=== PATIENT | male | born 1950 | race African-American/Black ===

== ENCOUNTER 2017-05-11 09:07 | Emergency (ER) | payer OTHER ==
[~2017-05-11] VITALS: Ht 170.2 cm; Wt 84.0 kg
[2017-05-11] MEDS ORDERED: ALLO300 PO (09:10)
[2017-05-11] MEDS ORDERED: AMLO-511 PO (09:10)
[2017-05-11] MEDS ORDERED: ATOR20TA86 PO (09:10)
[2017-05-11] MEDS ORDERED: VALS160T2 PO (09:10)
[2017-05-11] MEDS ORDERED: CARV12 PO (09:10)
[2017-05-11] MEDS ORDERED: RIVA15T PO (09:11)
[2017-05-11 09:15] VITALS: BP 166/114
== END 2017-05-11 09:33 | disposition home or self-care (01) ==
LOC: EMS 09:08
DX: I10 Essential (primary) hypertension (principal); R20.0 Anesthesia of skin; E78.00 Pure hypercholesterolemia, unspecified
CPT/HCPCS: 99281

== ENCOUNTER 2017-05-13 01:02 | Emergency (ER) | payer OTHER ==
[~2017-05-13] VITALS: Ht 170.2 cm; Wt 89.5 kg
[~2017-05-13 01:02] MED LIST: ALLO300 PO; AMLO-511 PO; ATOR20TA86 PO; CARV12 PO; RIVA15T PO; VALS160T2 PO
[2017-05-13 01:33] LABS: BASOPHILS # (AUTO) 0.02 K/uL (0.00-0.20); BASOPHILS % (AUTO) 0.5 % (0.0-2.0); EOSINOPHILS # (AUTO) 0.08 K/uL (0.00-0.70); HEMATOCRIT 44.4 % (41-53); HEMOGLOBIN 14.8 g/dL (13.5-17.5); LYMPHOCYTES # (AUTO) 1.6 K/uL (1.0-4.8); LYMPHOCYTES % (AUTO) 38.3 % (22.0-44.0); MEAN CORPUSCULAR HEMOGLOBIN 30.4 pg (26.0-34.0); MEAN CORPUSCULAR HGB CONC 33.4 G/dL (31.0-37.0); MEAN CORPUSCULAR VOLUME 91 fL (80-100); MONOCYTES # (AUTO) 0.4 K/uL (0.1-1.0); MONOCYTES % (AUTO) 9.6 % (2.0-9.0); NEUTROPHILS # (AUTO) 2.1 K/uL (1.8-7.7); NEUTROPHILS % (AUTO) 49.6 % (40.0-70.0); PLATELET COUNT (AUTO) 148 K/uL (150-450); RED BLOOD CELL COUNT(AUTO) 4.88 MIL/uL (4.50-5.90); WHITE BLOOD COUNT (AUTO) 4.2 K/uL (4.5-11.0)
[2017-05-13 01:43] LABS: INR 1.1 (0.9-1.1)
[2017-05-13 01:47] LABS: ANION GAP 8 mmol/L (8-16); CALCIUM, TOTAL 8.2 mg/dL (8.8-10.5); CARBON DIOXIDE 26 mmol/L (22-29); CHLORIDE 106 mmol/L (98-107); CREATININE 1.91 mg/dL (0.60-1.30); GLOMERULAR FILTR. RATE CALC 43 mL/min (>60); POTASSIUM 4.4 mmol/L (3.5-5.1); SODIUM SERUM 140 mmol/L (136-145); UREA NITROGEN, BLOOD 20 mg/dL (7-18)
[2017-05-13 01:53] LABS: ALANINE AMINOTRANSFERASE 33 U/L (12-78); ALBUMIN 3.6 g/dL (3.4-5.0); ASPARTATE AMINOTRANSFERASE 23 U/L (15-37); BILIRUBIN,TOTAL 0.4 mg/dL (0.1-1.0); CREATINE KINASE, TOTAL 69 U/L (39-308)
[2017-05-13] MEDS ORDERED: SODIUM CHLORIDE 0.9% 100 ML ONE (02:27)
[2017-05-13] MEDS ORDERED: IOVERSOL 350 MG/ML 100 ML VIAL ONE (02:27)
[2017-05-13] MEDS ORDERED: LORazepam 2 MG/ML VIAL ONE (02:47)
[2017-05-13 03:30] VITALS: BP 148/75
[2017-05-13] MEDS ORDERED: SODIUM CHLORIDE 0.9% 1,000 ML IV ONE (03:30)
== END 2017-05-13 04:02 | disposition short-term general hospital (02) ==
LOC: EMS 01:03
DX: I62.9 Nontraumatic intracranial hemorrhage, unspecified (principal); E78.00 Pure hypercholesterolemia, unspecified; I10 Essential (primary) hypertension
CPT/HCPCS: 36415; 70450; 70496; 71010; 80053; 82550; 84484; 85025; 85610; 85730; 93005; 99291; J7030; J7050; Q9967; 96360; J2060